=== PATIENT | female | born 1975 | race Caucasian/White ===

== ENCOUNTER 2016-03-21 21:53 | Inpatient (IN) | payer BC, MEDICAID ==
[~2016-03-21] VITALS: Ht 149.9 cm; Wt 86.4 kg
[~2016-03-21 21:53] MED LIST: CLIN-73 PO; IBUP-1542 PO; LORA-441 PO; TRAM50TA2 PO
[2016-03-21] MEDS ORDERED: ASPIRIN 325 MG TAB PO STA (23:14)
[2016-03-21] MEDS ORDERED: LIDOCAINE/MYLANTA 40 ML BTL PO ONE (23:30)
[2016-03-22 00:01] LABS: CHLORIDE 102 mmol/L (97-110); POTASSIUM 3.6 mmol/L (3.5-5.1); SODIUM 142 mmol/L (135-144)
[2016-03-22 00:04] LABS: ANION GAP 18 (8-16); BLOOD UREA NITROGEN 9 mg/dl (7-20); CARBON DIOXIDE 26 mmol/L (21-31); CREATININE 0.56 mg/dl (0.44-1.00)
[2016-03-22 00:05] LABS: GLUCOSE 125 mg/dl (70-220)
--- NOTE | 2016-03-22 00:05 | RADRPT ---
PROCEDURE: XR Chest. CLINICAL INDICATION: Chest pain. TECHNIQUE: Portable AP view of the chest was obtained. COMPARISON: 11/16/2014 FINDINGS: The cardiomediastinal silhouette is within normal limits. The lungs are clear. There is no evidenc e for pleural effusion, pneumothorax or pulmonary vascular congestion. The osseous structures are i ntact with no evidence for acute abnormality. RPTAT:HJJR IMPRESSION: No evidence for acute intrathoracic pathology or change from the prior exam. Physician Torrie Date Time Electronically viewed and signed by George Patrick Physician on 03/22/2016 00:05 /
[2016-03-22 00:21] LABS: INR 0.93; PROTIME 12.5 Sec (12.2-14.2)
[2016-03-22 00:23] LABS: TROPONIN-I < 0.012 ng/ml (0.00-0.12)
[2016-03-22 00:50] LABS: BASOPHIL # 0.1 10^3/ul (0.0-0.1); BASOPHILS % 0.5 % (0.0-2.0); EOSINOPHILS # 0.1 10^3/ul (0.0-0.5); HEMATOCRIT 38.9 % (37.0-47.0); HEMOGLOBIN 13.2 g/dl (12.0-16.0); LYMPHOCYTES # 3.2 10^3/ul (0.8-2.9); LYMPHOCYTES % 26.1 % (15.0-51.0); MEAN CORPUSCULAR HEMOGLOBIN 27.6 pg (29.0-33.0); MEAN CORPUSCULAR HGB CONC 33.8 g/dl (32.0-37.0); MEAN CORPUSCULAR VOLUME 81.6 fl (82.0-101.0); MEAN PLATELET VOLUME 8.2 fl (7.4-10.4); MONOCYTE # 0.7 10^3/ul (0.3-0.9); MONOCYTES % 5.9 % (0.0-11.0); NEUTROPHIL # 8.2 10^3/ul (1.6-7.5); NEUTROPHILS % 66.5 % (39.0-77.0); PLATELET COUNT 446 10^3/UL (140-440); RED BLOOD COUNT 4.77 10^6/ul (4.20-5.40); RED CELL DISTRIBUTION WIDTH 14.7 % (11.5-14.5); UNCORRECTED WBC 12.3 10^3/ul (4.8-10.8); WHITE BLOOD COUNT 12.3 10^3/ul (4.8-10.8)
[2016-03-22 00:57] LABS: CONDITION 1; LH ANALYZER COMMENTS 1
[2016-03-22] MEDS ORDERED: morphine 4 MG/ML VIAL IV STA (01:22)
[2016-03-22] MEDS ORDERED: LORAZEPAM 2 MG INJ IV ONE (01:30)
[2016-03-22] MEDS ORDERED: ONDANSETRON 4 MG INJ IV PRN ×2 (04:00→07:30)
[2016-03-22] MEDS ORDERED: ACETAMINOPHEN 325 MG TAB PO PRN ×2 (04:00→07:30)
--- NOTE | 2016-03-22 04:32 | ERA ---
ER Documentation Chief Complaint Date/Time DATE: 03/22/16 TIME: 04:25 Chief Complaint chest pain x 2 days, back paiin HPI This 40-year-old female presents with 2 days of left-sided and substernal chest pain that is also in her upper back.. States she occasionally has shortness of breath as well. 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 States that she has some perioral tingling. She denies any fevers or chills. ROS All systems reviewed and are negative except as per history of present illness. Medications Home Meds Active Scripts Lorazepam* (Ativan*) 0.5 Mg Tablet, 0.5 MG PO Q8 Y for ANXIETY/ SHORT OF BREATH , #18 TAB Prov:ELVIS CEDENO MD 11/16/14 Tramadol HCl (Tramadol HCl) 50 Mg Tab, 50 MG PO Q4 Y for PAIN, #20 TAB Prov:ELVIS CEDENO MD 11/16/14 Clindamycin Hcl* (Clindamycin Hcl*) 300 Mg Capsule, 300 MG PO Q8 for 10 Days, CAP Prov:SILVERIO GARZA NP 11/14/14 Ibuprofen* (Motrin*) 600 Mg Tab, 600 MG PO Q6H Y for PAIN AND OR ELEVATED TEMP, #30 Prov:JOYA JACOBO MD 10/30/14 Allergies Allergies: Coded Allergies: Penicillins (Verified Allergy, Unknown, hives, itching, 11/11/14) ibuprofen (Verified Allergy, Unknown, 11/16/14) PMhx/Soc History of Surgery: Yes () Anesthesia Reaction: No Hx Neurological Disorder: No Hx Respiratory Disorders: No Hx Cardiac Disorders: Yes (endocarditis) Hx Psychiatric Problems: No Hx Miscellaneous Medical Probl: No Hx Alcohol Use: No Hx Substance Use: No Hx Tobacco Use: No Smoking Status: Never smoker Physical Exam Vitals Vital Signs Date Time Temp Pulse Resp B/P Pulse Ox O2 Delivery O2 Flow Rate FiO2 03/22/16 02:58 65 16 121/76 100 Room Air 03/22/16 01:34 72 16 138/77 100 03/21/16 21:59 97.8 84 20 142/91 99 Physical Exam Const: [] No distress Head: Atraumatic Eyes: Normal Conjunctiva ENT: Normal External Ears, Nose and Mouth. Neck: Full range of motion..~ No meningismus. Resp: Clear to auscultation bilaterally Cardio: Regular rate and rhythm, no murmurs Abd: Soft, non tender, non distended. Normal bowel sounds Skin: No petechiae or rashes Back: No midline or flank tenderness Ext: No cyanosis, or edema Neur: Awake and alert and oriented 3, no focal deficits Psych: Normal Mood and Affect Result Diagram: 03/21/16 2340 03/21/160 Results 24 hrs Laboratory Tests Test 03/21/16 23:40 Activated Partial Thromboplast Time 26.0Sec Anion Gap 18 Basophils # 0.110^3/ul Basophils % 0.5% Blood Morphology Comment Blood Urea Nitrogen 9mg/dl Calcium Level 9.0mg/dl Carbon Dioxide Level 26mmol/L Chloride Level 102mmol/L Creatinine 0.56mg/dl Eosinophils # 0.110^3/ul Eosinophils % 1.0% Glucose Level 125mg/dl Hematocrit 38.9% Hemoglobin 13.2g/dl INR International Normalized Ratio 0.93 Lymphocytes # 3.210^3/ul Lymphocytes % 26.1% Mean Corpuscular Hemoglobin 27.6pg Mean Corpuscular Hemoglobin Concent 33.8g/dl Mean Corpuscular Volume 81.6fl Mean Platelet Volume 8.2fl Monocytes # 0.710^3/ul Monocytes % 5.9% Neutrophils # 8.210^3/ul Neutrophils % 66.5% Nucleated Red Blood Cells # 0.010^3/ul Nucleated Red Blood Cells % 0.0/100WBC Platelet Count 15519^3/UL Potassium Level 3.6mmol/L Prothrombin Time 12.5Sec Prothrombin Time Ratio 1.0 Red Blood Count 4.7710^6/ul Red Cell Distribution Width 14.7% Sodium Level 142mmol/L Troponin I < 0.012ng/ml White Blood Count 12.310^3/ul Current Medications Medications (Trade) Dose Ordered Sig/Khang Route PRN Reason Start Time Stop Time Status Last Admin Dose Admin Aspirin (Aspirin) 325 mg ONCE STAT PO 03/21/16 23:14 03/21/16 23:16 DC 03/21/16 23:59 Miscellaneous Medication (Gi Cocktail (2)) 40 ml ONCE ONCE PO 03/21/16 23:30 03/21/16 23:31 DC 03/21/16 23:59 Lorazepam (Ativan) 1 mg ONCE ONCE IV 03/22/16 01:30 03/22/16 01:31 DC 03/22/16 01:29 Morphine Sulfate (morphine) 4 mg ONCE STAT IV 03/22/16 01:22 03/22/16 01:23 DC Ondansetron HCl (Zofran Inj) 4 mg ER BRIDGE PRN IV NAUSEA AND/OR VOMITING 03/22/16 04:00 03/23/16 03:59 Acetaminophen (Tylenol Tab) 650 mg ER BRIDGE PRN PO MILD PAIN/FEVER 03/22/16 04:00 03/23/16 03:59 Procedures/MDM Chest pain with history of endocarditis. Except for a very mildly elevated white count patient has no signs of sepsis or any acute infection at this time. She was given 325 mg of aspirin as well as morphine and Zofran. This helped her chest pain but she did still feel little bit of chest pain. She has no signs of ischemia on her EKG and negative troponin. Given her history I believe he should be admitted for an echocardiogram and a district gauger evaluation for possible need for a BENNIE. Dr. Lawson is admitting. EKG interpretation: No sinus rhythm rate of 71, normal axis, no ST or T-wave changes concerning for acute ischemia, normal intervals fish technologist interpretation: Normal sinus rhythm without arrhythmia Chest x-ray interpretation: No acute process, no widened mediastinum, see no pneumothorax, no fractures, no pulmonary edema and no infiltrates. Departure Diagnosis: Primary Impression: Chest pain Condition: Stable LINDA FINNEY DO Mar 22, 2016 04:32
[2016-03-22] MEDS ORDERED: NACL 0.9% 3 ML SYG IV SCH (07:30)
[2016-03-22] MEDS ORDERED: ALBUTEROL/IPRATROPIUM (NEB) 3 ML AMP HHN PRN (07:30)
[2016-03-22] MEDS ORDERED: LORAZEPAM 0.5 MG TAB PO PRN (07:30)
[2016-03-22] MEDS ORDERED: morphine 2 MG INJ IV PRN (07:30)
[2016-03-22] MEDS ORDERED: NITROGLYCERIN (SL) 0.4 MG TAB SL PRN (07:30)
[2016-03-22] MEDS ORDERED: traMADol 50 MG TAB PO PRN (07:30)
[2016-03-22] MEDS: METOPROLOL 25 MG TAB PO SCH ×2 (09:00→20:02)
[2016-03-22] MEDS: ASPIRIN 81 MG TAB PO SCH (09:16)
[2016-03-22] MEDS: ENOXAPARIN 40 MG/0.4 ML SYG SC SCH (09:17)
[2016-03-22 09:22] LABS: BASOPHILS % 0.4 % (0.0-2.0); EOSINOPHILS # 0.1 10^3/ul (0.0-0.5); EOSINOPHILS % 1.2 % (0.0-7.0); HEMATOCRIT 38.6 % (37.0-47.0); LYMPHOCYTES # 2.2 10^3/ul (0.8-2.9); LYMPHOCYTES % 23.4 % (15.0-51.0); MEAN CORPUSCULAR HEMOGLOBIN 27.3 pg (29.0-33.0); MEAN CORPUSCULAR HGB CONC 33.6 g/dl (32.0-37.0); MEAN CORPUSCULAR VOLUME 81.3 fl (82.0-101.0); MEAN PLATELET VOLUME 7.8 fl (7.4-10.4); MONOCYTE # 0.5 10^3/ul (0.3-0.9); MONOCYTES % 4.7 % (0.0-11.0); NEUTROPHIL # 6.7 10^3/ul (1.6-7.5); NEUTROPHILS % 70.3 % (39.0-77.0); PLATELET COUNT 441 10^3/UL (140-440); RED BLOOD COUNT 4.75 10^6/ul (4.20-5.40); RED CELL DISTRIBUTION WIDTH 14.5 % (11.5-14.5); UNCORRECTED WBC 9.5 10^3/ul (4.8-10.8); WHITE BLOOD COUNT 9.5 10^3/ul (4.8-10.8)
[2016-03-22 09:23] LABS: CONDITION 1; LH ANALYZER COMMENTS 1
[2016-03-22 09:29] LABS: ALBUMIN 4.1 g/dl (3.3-4.9)
[2016-03-22 09:32] LABS: ALBUMIN/GLOBULIN RATIO 1.2; BILIRUBIN,INDIRECT 0.1 mg/dl (0-1.1); BILIRUBIN,TOTAL 0.1 mg/dl (0.2-1.3); CALCIUM 8.8 mg/dl (8.4-10.2); CREATININE 0.48 mg/dl (0.44-1.00); TOTAL PROTEIN 7.5 g/dl (6.1-8.1)
[2016-03-22 09:33] LABS: CHOL/HDL RATIO 2.5 RATIO; CREATINE KINASE 50 IU/L (23-200); MAGNESIUM 2.5 mg/dl (1.7-2.5)
[2016-03-22 09:42] LABS: CK-MB < 0.22 ng/ml (0.0-2.4)
[2016-03-22 09:48] LABS: TROPONIN-I < 0.012 ng/ml (0.00-0.12)
--- NOTE | 2016-03-22 14:10 | PN ---
Date/Time of Note Date/Time of Note DATE: 03/22/16 TIME: 14:08 Assessment/Plan VTE Prophylaxis VTE Prophylaxis Intervention: SCD's Lines/Catheters IV [facility]from [facility] Saline Lock Assessment/Plan Chief Complaint/Hosp Course Assessment and plan 1. Chest pain. Follow-up on serial troponins. Follow-up on echocardiogram. Patient is report family history of cardiac disease. We'll get railroad engineer to follow. 2. Obesity. Weight reduction advised 3. History of hypertension. Continue on anti-hypertensives and adjust needed DVT prophylaxis: SCDs Disposition and plan. Patient still with some reports of chest pain. Roofer Helper Vinyl Coating follow. Follow up on echocardiogram. Continue inpatient monitoring Discussed plan of care with Dr. Coulter Problems: Subjective 24 Hr Interval Summary Free Text/Dictation Still reports having some chest discomfort on the left side Exam/Review of Systems Vital Signs Vitals Vital Signs Date Time Temp Pulse Resp B/P Pulse Ox O2 Delivery O2 Flow Rate FiO2 03/22/16 11:00 78 20 120/80 98 Room Air 03/22/16 06:30 98.4 Exam General: No acute signs or symptoms of distress Eyes: pupils equal round, Anicteric sclera Neck: Supple nontender, no JVD Cardiac: S1, S2 auscultated, regular rhythm and rate Pulmonary: No coarse rhonchi or breathing auscultated GI: Abdomen soft nontender nondistended, bowel sounds active Extremities: No edema bilateral lower extremities Skin: Clean dry and intact Neurologic: Alert to person place and time and situation Results Result Diagram: 03/22/16 0908 03/22/16 0908 Results 24 hrs Laboratory Tests Test 03/21/16 23:40 03/22/16 09:08 Activated Partial Thromboplast Time 26.0 Anion Gap 18 H 18 H Basophils # 0.1 0.0 Basophils % 0.5 0.4 Blood Morphology Comment Blood Urea Nitrogen 9 10 Calcium Level 9.0 8.8 Carbon Dioxide Level 26 26 Chloride Level 102 103 Creatinine 0.56 0.48 Eosinophils # 0.1 0.1 Eosinophils % 1.0 1.2 Glucose Level 125 104 Hematocrit 38.9 38.6 Hemoglobin 13.2 13.0 INR International Normalized Ratio 0.93 Lymphocytes # 3.2 H 2.2 Lymphocytes % 26.1 23.4 Mean Corpuscular Hemoglobin 27.6 L 27.3 L Mean Corpuscular Hemoglobin Concent 33.8 33.6 Mean Corpuscular Volume 81.6 L 81.3 L Mean Platelet Volume 8.2 7.8 Monocytes # 0.7 0.5 Monocytes % 5.9 4.7 Neutrophils # 8.2 H 6.7 Neutrophils % 66.5 70.3 Nucleated Red Blood Cells # 0.0 0.0 Nucleated Red Blood Cells % 0.0 0.0 Platelet Count 446 H 441 H Potassium Level 3.6 4.0 Prothrombin Time 12.5 Prothrombin Time Ratio 1.0 Red Blood Count 4.77 4.75 Red Cell Distribution Width 14.7 H 14.5 Sodium Level 142 143 Troponin I < 0.012 < 0.012 White Blood Count 12.3 H 9.5 # Alanine Aminotransferase (ALT/SGPT) 49 Albumin 4.1 Albumin/Globulin Ratio 1.20 Alkaline Phosphatase 101 Aspartate Amino Transf (AST/SGOT) 34 Cholesterol Level 134 Cholesterol/HDL Ratio 2.5 Creatine Kinase 50 Creatine Kinase Index 0.4 Creatinine Kinase MB (Mass) < 0.22 Direct Bilirubin 0.00 Globulin 3.40 H HDL Cholesterol 52 Hemoglobin A1c 6.0 H Indirect Bilirubin 0.1 LDL Cholesterol, Calculated 71 Magnesium Level 2.5 Total Bilirubin 0.1 L Total Protein 7.5 Triglycerides Level 54 Medications Medications Current Medications Lorazepam (Ativan) 0.5 mg Q8H PRN PO ANXIETY; Start 03/22/16 at 07:30 Ondansetron HCl (Zofran Inj) 4 mg Q6H PRN IV NAUSEA AND/OR VOMITING; Start 03/22 at 07:30 Aspirin (Aspirin) 81 mg DAILY PO Last administered on 03/22/16 09:16; Admin Dose 81 MG; Start 03/22/16 at 09:00 Nitroglycerin (Nitroglycerin (Sl Tab) 0.4 Mg) 1 tab Q5M PRN SL CHEST PAIN; Start 03/22/16 at 07:30 Acetaminophen (Tylenol Tab) 650 mg Q6H PRN PO PAIN LEVEL 1-3 OR FEVER; Start at 07:30 Morphine Sulfate (morphine) 2 mg Q4H PRN IV PAIN LEVEL 7-10; Start 03/22/16 at 07:30 Enoxaparin Sodium (Lovenox) 40 mg DAILY SC Last administered on 2/5/17at 09:17 ; Admin Dose 40 MG; Start 03/22/16 at 09:00 Tramadol HCl (Ultram) 50 mg Q6 PRN PO PAIN; Start 03/22/16 at 07:30 Metoprolol Tartrate (Lopressor) 25 mg Q12 PO ; Start 03/22/16 at 09:00 KELSEA HOFFMANN Mar 22, 2016 14:10
[2016-03-22 14:48] LABS: CREATINE KINASE 65 IU/L (23-200)
[2016-03-22 15:10] LABS: CK-MB < 0.22 ng/ml (0.0-2.4); TROPONIN-I < 0.012 ng/ml (0.00-0.12)
[2016-03-22 17:43] VITALS: TEMP 98.4
[2016-03-22 18:51] VITALS: PULSE 69
[2016-03-22 18:53] VITALS: BP 130/70; PULSE 63; RESP 18
[2016-03-22 20:00] VITALS: Ht 149.9 cm; Wt 86.4 kg
[2016-03-22 20:27] VITALS: BP 122/59; PULSE 73; RESP 16
[2016-03-22 20:29] VITALS: PULSE 62
[2016-03-23] VITALS (9 sets, daily range): BP systolic 104–120; BP diastolic 56–68; PULSE 63–75; RESP 16–18
--- NOTE | 2016-03-23 06:37 | CONS ---
DATE OF ADMISSION: 03/22/2016 DATE OF CONSULTATION: 03/22/2016 REASON FOR CONSULTATION: Left-sided chest pain. HISTORY OF PRESENT ILLNESS: The patient is a 40-year-old female who comes in with chest pain locali zed to the left side of the chest and back, and radiating to the neck and upper arm. She denies elías rtness of breath, dizziness, syncope or palpitation. No nausea or vomiting. Denies any fever, chills, or rigors. PAST MEDICAL HISTORY: Obesity, hypertension. SOCIAL HISTORY: Denies any smoking, alcohol, or recreational drugs. ALLERGIES: SHE IS ALLERGIC TO: 1. PENICILLIN. 2. IBUPROFEN. CURRENT MEDICATIONS: Include: 1. Aspirin. 2. Lovenox. 3. Metoprolol. REVIEW OF SYSTEMS: Unremarkable except that mentioned in the HPI. PHYSICAL EXAMINATION: VITAL SIGNS: Temperature 98.4, heart rate of 67, blood pressure 118/72 mmHg, breathing at 16 and sa turating 99% on room air. GENERAL: The patient awake, alert, oriented, no apparent distress. NECK: No JVD or carotid bruit. CARDIOVASCULAR: Regular rate and rhythm, no murmur, rub or gallop. LUNGS: Clear to auscultation. ABDOMEN: Soft. Bowel sounds are present. There is no organomegaly. EXTREMITIES: No pedal edema. Pedal pulses are felt bilaterally. DIAGNOSTIC DATA: Review of 12-lead EKG shows sinus rhythm with a ventricular rate of 71 beats per m inute with normal [place], normal QRS and normal QT intervals with nonspecific ST-T wave changes. Chest x-ray shows no congestion or infiltrates. LABORATORY DATA: WBC 9.5, hemoglobin 13, hematocrit 38.2 with a platelet of 441. Sodium 143, potas sium 4, chloride 103, CO2 of 26, magnesium 2.5, BUN 10, creatinine 0.48. Troponin x3 is negative. ASSESSMENT AND PLAN: A 40-year-old female with atypical chest pain with history of obesity and hype rtension. Review of 12-lead EKG shows sinus rhythm with nonspecific ST-T wave changes. She has been ruled out for acute coronary syndrome with serial negative troponins and she is hemodynamically stable. RECOMMENDATIONS: 1. Echocardiogram to assess for segmental wall motion abnormality and to rule out for pericardial d isease and pulmonary hypertension. 2. Continue metoprolol as scheduled. 3. Continue aspirin. 4. Continue GI and DVT prophylaxis. Dictated By: SILVESTRE ALEX MD SR/GEORGETTE Conf#: [id number] DID#: [id number]
[2016-03-23 07:48] LABS: BASOPHIL # 0.1 10^3/ul (0.0-0.1); BASOPHILS % 0.5 % (0.0-2.0); EOSINOPHILS # 0.2 10^3/ul (0.0-0.5); EOSINOPHILS % 1.5 % (0.0-7.0); HEMATOCRIT 39.5 % (37.0-47.0); HEMOGLOBIN 13.3 g/dl (12.0-16.0); LYMPHOCYTES # 2.7 10^3/ul (0.8-2.9); LYMPHOCYTES % 24.5 % (15.0-51.0); MEAN CORPUSCULAR HEMOGLOBIN 27.7 pg (29.0-33.0); MEAN CORPUSCULAR HGB CONC 33.7 g/dl (32.0-37.0); MEAN CORPUSCULAR VOLUME 82.2 fl (82.0-101.0); MEAN PLATELET VOLUME 8.1 fl (7.4-10.4); MONOCYTE # 0.5 10^3/ul (0.3-0.9); MONOCYTES % 4.2 % (0.0-11.0); NEUTROPHIL # 7.7 10^3/ul (1.6-7.5); NEUTROPHILS % 69.3 % (39.0-77.0); PLATELET COUNT 487 10^3/UL (140-440); RED BLOOD COUNT 4.81 10^6/ul (4.20-5.40); RED CELL DISTRIBUTION WIDTH 14.8 % (11.5-14.5); UNCORRECTED WBC 11.1 10^3/ul (4.8-10.8); WHITE BLOOD COUNT 11.1 10^3/ul (4.8-10.8)
[2016-03-23 07:51] LABS: CONDITION 1
[2016-03-23 07:52] LABS: LH ANALYZER COMMENTS 1
[2016-03-23 07:57] LABS: POTASSIUM 3.9 mmol/L (3.5-5.1)
[2016-03-23 07:59] LABS: CREATININE 0.57 mg/dl (0.44-1.00)
[2016-03-23 08:00] LABS: PHOSPHORUS 3.5 mg/dl (2.5-4.9)
[2016-03-23 08:01] LABS: CALCIUM 9.1 mg/dl (8.4-10.2); MAGNESIUM 2.4 mg/dl (1.7-2.5)
[2016-03-23] MEDS: ASPIRIN 81 MG TAB PO SCH (08:31)
[2016-03-23] MEDS: METOPROLOL 25 MG TAB PO SCH (08:32)
[2016-03-23] MEDS: ENOXAPARIN 40 MG/0.4 ML SYG SC SCH (08:35)
--- NOTE | 2016-03-23 09:11 | HP ---
DATE OF ADMISSION: 03/22/2016 TIME SEEN: 6 a.m. CHIEF COMPLAINT: Chest pain. HISTORY OF PRESENT ILLNESS: The patient is a 40-year-old female with a history of hypertension who presented to the emergency department with chest pain. The chest pain is located in the midchest an d left side with occasional radiation to the right side of her jaw and arm. She stated it feels lik e her endocarditis when she was diagnosed in the prior year. Note, however, that at that time an ec ho was done, it showed no vegetation, so I doubt that she has a diagnosis of endocarditis. When she presented to the ER, her vitals stayed stable. Her labs show a WBC of 12.3, otherwise CBC and BMP are within normal limits. EKG with no ST depression or elevation. Her first troponin is negative a nd chest x-ray with no evidence of acute intrathoracic pathology. The patient was admitted here pre viously with chest pain in 2014, and at that time it was felt that it was musculoskeletal. REVIEW OF SYSTEMS: A 12-point review of systems was performed, negative except as mentioned in the HPI. PAST MEDICAL HISTORY: Hypertension. PAST SURGICAL HISTORY: She had a bone implant in order to implant a tooth, I believe. SOCIAL HISTORY: Denied a history of tobacco, alcohol, or illicit drug use. ALLERGIES: NO KNOWN DRUG ALLERGIES. HOME MEDICATIONS: 1. Ibuprofen as needed. 2. Ativan 3. Tramadol. PHYSICAL EXAMINATION: VITAL SIGNS: Stable. GENERAL: No acute distress, looks comfortable, answering questions appropriately. Speaks in full s entences. HEENT: No obvious head deformity. Pupils are reactive to light. Extraocular muscles intact. CARDIOVASCULAR: Regular rate and rhythm. . LUNGS: Clear. ABDOMEN: Soft, nontender, nondistended. Positive bowel sounds. EXTREMITIES: No edema. NEUROLOGIC: No focal deficits. LABORATORY: Pertinent positives as mentioned in the HPI. IMAGING: Chest x-ray negative for acute processes. IMPRESSION: 1. Chest pain, will need to rule out acute coronary syndrome. 2. History of hypertension. 3. Obesity with a BMI of 38. PLAN: Continue telemetry monitoring. Continue cardiac medication including oxygen, aspirin, and as needed morphine and nitroglycerin. We will obtain a 2-D echo and cadmium burner consult. The patien t had been advised about the importance of weight loss. Further workup and management per clinical course. Dictated By: ALMAZ HOWARD/GEORGETTE Conf#: [id number] DID#: [id number]
--- NOTE | 2016-03-23 11:02 | RADRPT ---
Echocardiogram Report Patient Name: LENIN LAND Gender: Female Date: 1975 Study Date: 23-Mar-2016 Animation Camera Operator: Agustina Stephens RDCS Location: I Ref. Physician: BETHEL ADAIR Quality: Good Procedures: Transthoracic echocardiogram with complete 2D, M-Mode, and doppler examination. Indications: Evaluate Left Ventricular function. 2D/M Mode Doppler Measurement Value Normal Ranges Measurement Value Normal Ranges LVIDd 2D 4.6 3.5 - 5.6 cm AV Peak Matias 1.9 m/sec LVIDs 2D 2.9 2.1 - 4.1 cm AV Peak PG 15.0 mmHg FS 2D 38.0 % LVOT Peak Matias 1.1 m/sec LVPWd 2D 0.8 0.6 - 1.1 cm LVOT Peak PG 5.0 mmHg IVSd 2D 0.8 0.6 - 1.1 cm MV E Peak Matias 1.0 m/sec IVS/LVPW 2D 1.0 MV A Peak Matias 1.0 m/sec AoR Diam 2D 2.1 2.0 - 3.7 cm MV E/A 1.0 LA/Ao 2D 1 0 - 1 MV Decel Time 173 msec EDV 2D 99.3 cm3 MV E/A 1.0 ESV 2D 23.6 cm3 LA Dimen 2D 3.0 2.3 - 4.0 cm Findings Left Ventricle: Normal left ventricular systolic function. Normal left ventricular cavity size. Normal left ventricular wall thickness. Ejection fraction is visually estimated at 65 %. Right Ventricle: Normal right ventricular size. Normal right ventricular systolic function. Left Atrium: The left atrium is normal in size. Right Atrium: The right atrium is normal in size. Mitral Valve: Normal appearance and function of the mitral valve with trace physiologic regurgitation. Aortic Valve: Normal appearance of the aortic valve. No significant aortic stenosis or insufficiency. Tricuspid Valve: Normal appearance and function of the tricuspid valve with trace physiologic regurgitation. Pericardium: Normal pericardium with no significant pericardial effusion. Aorta: Normal aortic root. IVC: Normal size and normal respiratory collapse consistent with normal right atrial pressure. Conclusions Normal left ventricular systolic function. Normal left ventricular cavity size. Normal left ventricular wall thickness. Ejection fraction is visually estimated at 65 %. Normal appearance and function of the mitral valve with trace physiologic regurgitation. Normal appearance of the aortic valve. No significant aortic stenosis or insufficiency. Normal appearance and function of the tricuspid valve with trace physiologic regurgitation. Normal pericardium with no significant pericardial effusion. Electronically Signed By: Bethel Adair 23-Mar-2016 11:01:28 -0800 Patient Name: LENIN LAND Study Date: 23-Mar-2016 [id number]
--- NOTE | 2016-03-23 17:12 | PDOCDIS ---
Discharge Instructions DIAGNOSIS Discharge Diagnosis: Atypical chest pain. CONDITION Patient Condition: Stable HOME CARE INSTRUCTIONS: Diet Instructions: Low Fat /Cholesterol FOLLOW UP/APPOINTMENTS Appointments Jasvir Reyes MD Specialty: Internal Medicine Office Address: [address] [place], [place] [id number] Office OTHER ORDERS: Other Orders: 1. Take medications as per prescription. 2. Follow-up with your dentist regarding dental pain. 3. Take a carbohydrate controlled, low-cholesterol diet. 4. Follow-up with your primary care physician in 2 weeks. If you do not have a primary care physician, please call Dr. Jasvir Reyes's office. 5. Resume activities as tolerated. SILVERIO GARZA NP Mar 23, 2016 17:12
[2016-03-23] MEDS ORDERED: METF500T4 PO (17:14)
[2016-03-23] MEDS ORDERED: METO-448 PO (17:14)
--- NOTE | 2016-03-23 17:28 | PN ---
Date/Time of Note Date/Time of Note DATE: 03/23/16 TIME: 17:25 Assessment/Plan VTE Prophylaxis VTE Prophylaxis Intervention: LMWH Lines/Catheters IV [facility] Saline Lock Urinary Cath still in place: No Assessment/Plan Chief Complaint/Hosp Course 1. Chest pain. Acute coronary syndrome ruled out. Troponins negative. 2-D echocardiogram showing preserved left ventricular ejection fraction. 2. Essential hypertension. Continue antihypertensives. Blood pressure well controlled. 3. Pre-diabetes. Hemoglobin A1c is 6.0. Will start the patient on metformin. 4. Anxiety disorder. Continue anxiolytics as needed. 5. Fluids, electrolytes, and nutrition. Low-cholesterol, carbohydrate controlled diet. 6. DVT prophylaxis. Subcutaneous Lovenox. 7. Gastrointestinal prophylaxis. Not indicated. 8. Plan. Continue current care. Await cardiology clearance before discharge. Start metformin. Case discussed with Dr. Akins. Problems: Subjective 24 Hr Interval Summary Free Text/Dictation Denies any chest pain or palpitations. Complains of left jaw pain. Exam/Review of Systems Vital Signs Vitals Vital Signs Date Time Temp Pulse Resp B/P Pulse Ox O2 Delivery O2 Flow Rate FiO2 03/23/16 16:41 75 03/23/16 15:25 98.4 18 104/68 98 03/22/16 20:27 Room Air Exam General: Obese 40 year-old female lying in bed in no apparent distress. HEENT: Normocephalic, atraumatic. Eyes: Anicteric sclerae, conjunctivae clear. ENT: Nasal septum midline, oral mucosa moist. Neck supple, no JVD noticed. Respiratory: Bilaterally clear breath sounds. No use of accessory muscles of respiration. No adventitious breath sounds. Cardiovascular: S1, S2 heard. No murmurs or gallops. Abdomen: Soft, nontender, and nondistended. Bowel sounds positive in all 4 quadrants. Genitourinary: Deferred. Extremities: No cyanosis, no clubbing, no edema. Peripheral pulses palpable. Neurologic: Cranial nerves II through XII grossly intact. The patient is awake, alert, and oriented. Skin: Normal skin turgor. No skin rashes. Results Result Diagram: 03/23/16 0630 03/23/16 0630 Results 24 hrs Laboratory Tests Test 03/23/16 06:30 Anion Gap 18 H Basophils # 0.1 Basophils % 0.5 Blood Morphology Comment Blood Urea Nitrogen 10 Calcium Level 9.1 Carbon Dioxide Level 26 Chloride Level 103 Creatinine 0.57 Eosinophils # 0.2 Eosinophils % 1.5 Glucose Level 104 Hematocrit 39.5 Hemoglobin 13.3 Lymphocytes # 2.7 Lymphocytes % 24.5 Magnesium Level 2.4 Mean Corpuscular Hemoglobin 27.7 L Mean Corpuscular Hemoglobin Concent 33.7 Mean Corpuscular Volume 82.2 Mean Platelet Volume 8.1 Monocytes # 0.5 Monocytes % 4.2 Neutrophils # 7.7 H Neutrophils % 69.3 Nucleated Red Blood Cells # 0.0 Nucleated Red Blood Cells % 0.0 Phosphorus Level 3.5 Platelet Count 487 H Potassium Level 3.9 Red Blood Count 4.81 Red Cell Distribution Width 14.8 H Sodium Level 143 White Blood Count 11.1 H Medications Medications Current Medications Lorazepam (Ativan) 0.5 mg Q8H PRN PO ANXIETY Last administered on 03/22/16 22: 11; Admin Dose 0.5 MG; Start 03/22/16 at 07:30 Ondansetron HCl (Zofran Inj) 4 mg Q6H PRN IV NAUSEA AND/OR VOMITING; Start 03/22 at 07:30 Aspirin (Aspirin) 81 mg DAILY PO Last administered on 03/23/16 08:31; Admin Dose 81 MG; Start 03/22/16 at 09:00 Nitroglycerin (Nitroglycerin (Sl Tab) 0.4 Mg) 1 tab Q5M PRN SL CHEST PAIN; Start 03/22/16 at 07:30 Acetaminophen (Tylenol Tab) 650 mg Q6H PRN PO PAIN LEVEL 1-3 OR FEVER; Start at 07:30 Morphine Sulfate (morphine) 2 mg Q4H PRN IV PAIN LEVEL 7-10 Last administered on 03/22/16 19:53; Admin Dose 2 MG; Start 03/22/16 at 07:30 Enoxaparin Sodium (Lovenox) 40 mg DAILY SC Last administered on 03/23/16 08:35 ; Admin Dose 40 MG; Start 03/22/16 at 09:00 Tramadol HCl (Ultram) 50 mg Q6 PRN PO PAIN; Start 03/22/16 at 07:30 Metoprolol Tartrate (Lopressor) 25 mg Q12 PO Last administered on 03/23/16 08: 32; Admin Dose 25 MG; Start 03/22/16 at 09:00 SILVERIO GARZA NP Mar 23, 2016 17:28
--- NOTE | 2016-03-23 18:02 | CONS ---
Date/Time of Note Date/Time of Note DATE: 03/23/16 TIME: 17:58 Assessment/Plan Assessment/Plan Chief Complaint/Hosp Course IMp: 1.Chest pain-resolved/atypical 2.HTN 3.DM 4.dyslipidemia-low HDL Recc: -Tele -serial ecg's -Continue BB -Continue asa -PRN SLNTG -OK for d/c with outpatient stress testing if no further chest pain Problems: Consultation Date/Type/Reason Admit Date/Time Mar 22, 2016 at 03:48 Initial Consult Date 03/23/16 Type of Consultation: Cardiology Reason for Consultation Chest pain Referring Provider: ADITYA ROSAS MD Exam/Review of Systems Vital Signs Vitals Vital Signs Date Time Temp Pulse Resp B/P Pulse Ox O2 Delivery O2 Flow Rate FiO2 03/23/16 16:41 75 03/23/16 15:25 98.4 18 104/68 98 03/22/16 20:27 Room Air Exam Review of Systems: CONSTITUTIONAL: No fevers, chills. PULMONARY: No sob CARDIOVASCULAR: No chest pain/palpitations GASTROINTESTINAL: No nausea/vomiting. GENITOURINARY: No hematuria/dysuria. MUSCULOSKELETAL: No myagias/arthalgias. PSYCHIATRIC: The patient denies depression. NEUROLOGIC: No weakness Constitutional: alert, oriented Psych: no complaints Head: normocephalic ENMT: mucosa pink and moist Neck: jvd, supple Respiratory: diminished breath sounds Cardiovascular: regular rate and rhythm Gastrointestinal: non-tender, soft Musculoskeletal: muscle tone Extremities: normal pulses Neurological: other (No focal deficits) Results Result Diagram: 03/23/16 0630 03/23/16 0630 Results 24 hrs Laboratory Tests Test 03/23/16 06:30 Anion Gap 18 H Basophils # 0.1 Basophils % 0.5 Blood Morphology Comment Blood Urea Nitrogen 10 Calcium Level 9.1 Carbon Dioxide Level 26 Chloride Level 103 Creatinine 0.57 Eosinophils # 0.2 Eosinophils % 1.5 Glucose Level 104 Hematocrit 39.5 Hemoglobin 13.3 Lymphocytes # 2.7 Lymphocytes % 24.5 Magnesium Level 2.4 Mean Corpuscular Hemoglobin 27.7 L Mean Corpuscular Hemoglobin Concent 33.7 Mean Corpuscular Volume 82.2 Mean Platelet Volume 8.1 Monocytes # 0.5 Monocytes % 4.2 Neutrophils # 7.7 H Neutrophils % 69.3 Nucleated Red Blood Cells # 0.0 Nucleated Red Blood Cells % 0.0 Phosphorus Level 3.5 Platelet Count 487 H Potassium Level 3.9 Red Blood Count 4.81 Red Cell Distribution Width 14.8 H Sodium Level 143 White Blood Count 11.1 H Medications Medications Current Medications Lorazepam (Ativan) 0.5 mg Q8H PRN PO ANXIETY Last administered on 03/22/16 22: 11; Admin Dose 0.5 MG; Start 03/22/16 at 07:30 Ondansetron HCl (Zofran Inj) 4 mg Q6H PRN IV NAUSEA AND/OR VOMITING; Start 03/22 at 07:30 Aspirin (Aspirin) 81 mg DAILY PO Last administered on 03/23/16 08:31; Admin Dose 81 MG; Start 03/22/16 at 09:00 Nitroglycerin (Nitroglycerin (Sl Tab) 0.4 Mg) 1 tab Q5M PRN SL CHEST PAIN; Start 03/22/16 at 07:30 Acetaminophen (Tylenol Tab) 650 mg Q6H PRN PO PAIN LEVEL 1-3 OR FEVER; Start at 07:30 Morphine Sulfate (morphine) 2 mg Q4H PRN IV PAIN LEVEL 7-10 Last administered on 03/22/16 19:53; Admin Dose 2 MG; Start 03/22/16 at 07:30 Enoxaparin Sodium (Lovenox) 40 mg DAILY SC Last administered on 03/23/16 08:35 ; Admin Dose 40 MG; Start 03/22/16 at 09:00 Tramadol HCl (Ultram) 50 mg Q6 PRN PO PAIN; Start 03/22/16 at 07:30 Metoprolol Tartrate (Lopressor) 25 mg Q12 PO Last administered on 03/23/16 08: 32; Admin Dose 25 MG; Start 03/22/16 at 09:00 SARANYA BERRY Mar 23, 2016 18:02
--- NOTE | 2016-03-23 18:02 | DS ---
DATE OF ADMISSION: 03/22/2016 DATE OF DISCHARGE: 03/23/2016 FINAL DIAGNOSES: 1. Atypical chest pain. Acute coronary syndrome ruled out. 2. Prediabetes. 3. Essential hypertension. 4. Obesity. 5. Anxiety disorder. CONSULTATIONS: 1. Dr. Bethel Adair, Cardiology. 2. Dr. Norbert Snell, Cardiology. HOSPITAL COURSE: This is a 40-year-old female with past medical history of essential hypertension and anxiety disorder who came to the emergency room with chief complaint of chest pain. The patient verbalized the chest pain as substernal in origin with occasional radiation to the right side of her jaw and arm. Provided the patient's history of present illness, a clinical decision was made to admit the patient to inpatient setting to have her further evaluated. The patient was admitted to inpatient telemetry floor. A cardiology consult was called. Serial troponins were ordered. A 2D echocardiogram was ordered. The patient's troponins remained negative. The patient's 2D echocardiogram showed preserved left ventricular ejection fraction. There was no evidence of any vegetation. It is mentioned in the history of present illness, the patient had cardiac vegetation; however, upon review of the patient 's previous medical records from October 2014, the patient had no evidence of any cardiac vegetation. It was concluded that, the patient's chest pain is atypical in origin. The patient was complaining of dental pain since she had a dental implant. The patient was advised to follow up with her dentist regarding the dental pain. The patient has essential hypertension. The patient does not take any antihypertensives regularly at home. The patient was started on antihypertensives with improvement of the patient's blood pressure. The patient was also noticed to have underlying anxiety. The patient was placed on anxiolytic for the same. The patient's fasting lipid panel was optimal. However, the patient's hemoglobin A1c was found to be 6.0. The patient ideally needs to be started on metformin upon discharge. The patient had a stable hospital course. The patient was cleared by consultants to be discharged home. The patient denied any complaints at the time of discharge. DISCHARGE DISPOSITION/PLAN: The patient will be discharged home today. The patient was instructed to take medications as per prescription. She was instructed to follow up with her dentist regarding dental pain. The patient was instructed to take a carbohydrate controlled, low cholesterol diet. The patient was instructed to follow up with her primary care physician in 2 weeks and if she does not have a primary care physician to please call Dr. Jasvir Reyes 's office. The patient was instructed to resume activities as tolerated. The patient verbalized understanding of her discharge instructions. CONDITION AT DISCHARGE: Stable. DISCHARGE MEDICATIONS: 1. Metformin 500 mg p.o. with breakfast and dinner. 2. Metoprolol tartrate 25 mg p.o. q.12h. 3. Ativan 0.5 mg p.o. q.8h. p.r.n. anxiety (#20 tablets). PERTINENT LABORATORY AND DIAGNOSTIC DATA: 1. 2D echocardiogram. Ejection fraction of 65%. Normal left ventricular wall thickness. Normal left ventricular cavity size. Normal appearance and function of the tricuspid valve with trace physiologic regurgitation. Normal pericardium with no significant pericardial effusion. 2. Chest x-ray. No evidence of acute intrathoracic pathology. 3. Latest CBC: WBC 11.1, hemoglobin 13.3, hematocrit 39.5, platelet count 487. 4. Latest BMP: Sodium 143, potassium 3.9, chloride 103, carbon dioxide 26, anion gap 18, BUN 10, creatinine 0.57, glucose 104, calcium 9.1, phosphorus 3.5 , magnesium 2.4. 5. Fasting lipid panel. Triglycerides 54, total cholesterol 134, LDL 71, HDL 52. 6. Hemoglobin A1c 6.0. At this time, I would like to thank all the consultants for seeing the patient and providing clinical recommendations. The case and management of this patient was fully discussed with Dr. Rosas. Approximately 35 minutes was spent on coordinating the discharge on this patient. SILVERIO ROSAS MD, AM/GEORGETTE Conf#: [id number] DID#: [id number] MTDD
[2016-03-23] MEDS ORDERED: metFORMIN 500 MG TAB PO SCH (18:05)
== END 2016-03-23 19:36 | disposition home or self-care (01) | DRG 313 ==
LOC: E/R 21:53 → MS4 03-22 03:48
PROVIDERS: ADMIT Internal Medicine; ATTEND Internal Medicine
DX: R07.89 Other chest pain (principal); I10 Essential (primary) hypertension; R73.03 Prediabetes; E66.9 Obesity, unspecified; Z68.38 Body mass index [BMI] 38.0-38.9, adult; F41.9 Anxiety disorder, unspecified; E78.5 Hyperlipidemia, unspecified
CPT/HCPCS: 36415; 71010; 80048; 80053; 80061; 82550; 82553; 83036; 83735; 84100; 84484; 85025; 85610; 85730; 93005; 93306; 96372; 96374; J1650; J2060; J2270